=== PATIENT | female | born 1995 | race Caucasian/White ===

== ENCOUNTER 2017-05-09 10:37 | Emergency (ER) | payer OTHER ==
[~2017-05-09] VITALS: Ht 165.1 cm; Wt 68.0 kg
[2017-05-09] MEDS ORDERED: ONDA4TAB10 SL (11:21)
--- NOTE | 2017-05-09 11:21 | PHYS DOC ---
Adult General Chief Complaint Chief Complaint: VOMITING IN HPI HPI Patient is a 21 year old female who presents with nausea and vomiting in . She is , approx 8 weeks with self-reported US by Dr. Holguin's clinic showing IUP. She states she has had hyperemesis with all pregnancies, symptoms usual for her, & is requesting zofran. She vomits several times daily especially after eating, but she states she tolerates fluids. She has already been taking during this but ran out of meds. She denies any fevers/chills, abdominal pain, diarrhea, dysuria, vaginal bleeding/discharge. She has an appointment with Dr. Holguin next week. She is referred by Dr. Fletcher's office today. Review of Systems Review of Systems Constitutional: Denies fever or chills HENT: Denies nasal congestion or sore throat Respiratory: Denies cough or shortness of breath Cardiovascular: Denies chest pain GI: Reports nausea/vomiting. Denies abdominal pain, diarrhea : Denies dysuria or hematuria Musculoskeletal: Denies back pain or joint pain Integument: Denies rash Neurologic: Denies headache, focal weakness or sensory changes Current Medications Current Medications Current Medications Medications (Trade) Dose Ordered Sig/Zelalem Start Time Stop Time Status Last Admin Dose Admin Ondansetron HCl (Zofran) 4 mg 1X ONCE 05/09/17 11:15 05/09/17 11:16 UNV Physical Exam Physical Exam Constitutional: Well developed, well nourished, no acute distress, non-toxic appearance. HENT: Normocephalic, atraumatic, bilateral external ears normal, oropharynx moist, nose normal. Eyes: conjunctiva normal, no discharge. Cardiovascular: RRR, no murmurs, no edema. Lungs & Thorax: LCTAB, no wheezing, no respiratory distress. Abdomen: soft, nontender, nondistended. Skin: Warm, dry, no erythema, no rash. Back: No tenderness. Extremities: No deformity Neurologic: Alert and oriented X 3 EKG EKG [] Radiology/Procedures Radiology/Procedures [] Course & Med Decision Making Course & Med Decision Making Pertinent Labs and Imaging studies reviewed. (See chart for details) Patient referred here by her PCP. She has nausea and vomiting in . Well -appearing with stable vital signs. No abdominal tenderness or bleeding. Offered IV fluids and labs. She states she has symptoms that are very typical for her and she is used to having them as this is her third . She declines workup here, just requesting prescription for Zofran. She would like to get home to her other children. We discussed possible risk of Zofran and . She has taken it previously and would like to continue as it works well for her in the orally dissolving form. Recommend hydration with clear liquids, eat frequent small meals. Follow-up with Dr. Holguin in the OB clinic this week. Return for high fever, severe pain, uncontrolled vomiting, heavy bleeding requiring > 1 pad per hour, any otherwise worsening condition. Discharged home in stable condition. [] Dragon Disclaimer Dragon Disclaimer This chart was dictated in whole or in part using Voice Recognition software in a busy, high-work load, and often noisy Emergency Department environment. It may contain unintended and wholly unrecognized errors or omissions. Departure Departure: Impression: Primary Impression: Nausea/vomiting in Disposition: HOME, SELF-CARE Condition: STABLE Referrals: SHALONDA SINGH (PCP) Patient Instructions: Nausea and Vomiting, [id number] Additional Instructions: You were seen in the emergency department today for nausea and vomiting in . Please continue to take Zofran as needed for nausea and vomiting. Try to drink frequent meals or small snacks. Drink fluids to stay hydrated. Keep follow-up with Dr. Holguin this week. Return to the emergency department for severe abdominal pain, uncontrolled vomiting, heavy bleeding requiring use of greater than 1 pad per hour, any otherwise worsening condition. Scripts Ondansetron (ZOFRAN ODT) 4 Mg Tab.rapdis 1 TAB SL Q8HRS, #10 TAB Prov: SANDRITA MCCRACKEN MD 05/09/17 SANDRITA MCCRACKEN MD May 09, 2017 11:21
[2017-05-09 11:25] VITALS: BP 125/62
[2017-05-09] MEDS ORDERED: ONDANSETRON PF 4 MG/2 ML VIAL. IV ONE (11:45)
[2017-05-09] MEDS ORDERED: ONDANSETRON ODT 4 MG TAB.RAPDIS PO ONE (12:00)
== END 2017-05-09 11:30 | disposition home or self-care (01) ==
LOC: ER 10:37
DX: O21.9 Vomiting of pregnancy, unspecified (principal); Z3A.08 8 weeks gestation of pregnancy
CPT/HCPCS: 99283; Q0162

== ENCOUNTER → 2017-08-01 | Outpatient (CLI) | payer OTHER ==
[~2017-08-01] MED LIST: ONDA4TAB10 SL
--- NOTE | 2017-08-01 16:50 | RAD ---
EXAM: Obstetric ultrasound. HISTORY: Size/date discrepancy. COMPARISON: None. FINDINGS: Sonographic evaluation of the pelvis and fetus was performed transabdominally. There is a single fetus in vertex presentation. Estimated gestational age based on measurements is 20 weeks 1 day. Estimated weight is 360 g. heart is 175 bpm. The cervix is closed and measures 6.1 cm. The placenta is fundal and posterior. Amniotic fluid volume appears normal. The stomach and bladder are visualized. Images of the kidneys reveal no hydronephrosis. The cord insertion appears normal. The cord is three-vessel. Images of the spine reveal no clear defects. extremities appear normal. The diaphragm appears complete. Nose/lip morphology is normal but is not clearly demonstrated on these images. The heart is four-chamber. IMPRESSION: 1. Single fetus in vertex presentation. Estimated gestational age based on measurements 20 weeks 1 day. heart rate 175 bpm.
== END | disposition home or self-care (01) ==
LOC: US 14:00
PROVIDERS: ATTEND Obstetrics & Gynecology
DX: O09.92 Supervision of high risk pregnancy, unspecified, second trimester (principal); O26.842 Uterine size-date discrepancy, second trimester; Z3A.20 20 weeks gestation of pregnancy
CPT/HCPCS: 76805